=== PATIENT | female | born 1955 | race Caucasian/White ===

== ENCOUNTER 2017-06-21 17:00 | Emergency (ER) | payer OTHER ==
[~2017-06-21] VITALS: Ht 157.5 cm; Wt 61.2 kg
[~2017-06-21 17:00] MED LIST: BIOTIN2500 MCG PO; CEPACOL SORE T1 EAC1; CIPRO250 M1 PO; CLEOCIN HCL150 MG PO; COLACE 100 MG100 MG; COLACE100 MG PO; DOXYCYCLINE 10100 MG PO; DULCOLAX5 MG PO; ERYTHROMYCIN500 MG PO; ESTRADIOL 1 MG T1 M1 PO; FISHOIL; FLAGYL500 MG PO; FLEET ENEMA118 ML RC; GARLIC OIL1 EACH; HYDROCHLOROTH12.5 M1 PO; HYDROCHLOROTH12.5 MG; HYDROCODON-ACE1 EAC7 PO; LINZESS290 MCG PO; MACROBID 100 M100 M1 PO; MEDROLDOSEPACK PO; MIRALAX17 GM PO; MUCINEX1200 MG PO; NAPROSYN500 MG PO; NORCO 5-325 TA1 EACH PO; PREMARIN0.9 M1; PRINIVIL10 MG PO; PROBIOTIC1 EAC1 PO; PROBIOTIC1 EACH; PROMETHAZINE D480 ML PO; PROMETHAZINE-C120 ML PO; TYLENOL325 MG PO; ULTRAM 50MG TAB50 MG PO; VICODIN ES TAB1 EACH; VITAMIN E400 UNI2 PO; VITAMIN E400 UNIT; ZOCOR 20 MG TAB20 M1 PO; ZOFRAN 4 MG ORAL4 M1 DIS; ZOFRAN ODT4 MG PO; ZOFRAN4 MG PO
[2017-06-21 19:00] VITALS: BP 111/79
[2017-06-21] MEDS ORDERED: PREDNISONE 20 M20 M1 PO (19:00)
[2017-06-21] MEDS ORDERED: PEPCID20 MG PO (19:01)
[2017-10-04] MEDS ORDERED: ULTRAM 50MG TAB50 MG PO (10:47)
[2017-10-04] MEDS ORDERED: HYDROCODONE-AP1 EAC6 PO (10:47)
[2017-10-04] MEDS ORDERED: ASPIRIN325 PO (11:15)
== END 2017-06-21 19:22 | disposition home or self-care (01) ==
LOC: M.ERS 17:00
DX: T78.40XA Allergy, unspecified, initial encounter (principal); I10 Essential (primary) hypertension; E78.00 Pure hypercholesterolemia, unspecified; Z90.710 Acquired absence of both cervix and uterus; Z98.890 Other specified postprocedural states; Z87.19 Personal history of other diseases of the digestive system; Z91.048 Other nonmedicinal substance allergy status; Z88.1 Allergy status to other antibiotic agents; Z88.5 Allergy status to narcotic agent; Z91.040 Latex allergy status; Z88.0 Allergy status to penicillin; Z88.8 Allergy status to other drugs, medicaments and biological substances; X58.XXXA Exposure to other specified factors, initial encounter; Y92.89 Other specified places as the place of occurrence of the external cause

== ENCOUNTER 2017-08-08 15:41 | Inpatient (IN) | payer OTHER ==
[~2017-08-08] VITALS: Ht 157.5 cm; Wt 66.2 kg
[~2017-08-08 15:41] MED LIST changes: +PEPCID20 MG PO; +PREDNISONE 20 M20 M1 PO
[2017-08-08 15:57] VITALS: BP 139/86
[2017-08-08] MEDS ORDERED: PROBIOTIC1 EAC1 PO (16:06)
[2017-08-08] MEDS ORDERED: LISINOPRIL-HCT1 EACH PO (16:06)
[2017-08-08] MEDS ORDERED: VITAMIN E400 UNIT PO (16:07)
[2017-08-08] MEDS ORDERED: COLACE100 MG PO (16:07)
[2017-08-08] MEDS ORDERED: GARLIC1 EACH PO (16:07)
[2017-08-08] MEDS ORDERED: HAIR, SKIN & N1 EAC1 PO (16:08)
[2017-08-08] MEDS ORDERED: BIOTIN5 MG PO (16:08)
[2017-08-08 16:16] LABS: URINE BILIRUBIN NEGATIVE (Negative); URINE BLOOD NEGATIVE (Negative); URINE CLARITY CLEAR; URINE COLOR YELLOW; URINE GLUCOSE-RANDOM NEGATIVE (Negative); URINE KETONES NEGATIVE (Negative); URINE LEUKOCYTES-REFLEX NEGATIVE (Negative); URINE NITRITE-REFLEX NEGATIVE (Negative); URINE PROTEIN NEGATIVE (Negative); URINE SPECIFIC GRAVITY 1.025 (1.005-1.030); URINE UROBILINOGEN 0.2 E.U./dl (0.2-1.0)
[2017-08-08 16:25] LABS: ABSOLUTE BASOPHILS 0.1 thou/uL (0.0-0.2); ABSOLUTE EOSINOPHILS 0.1 thou/uL (0.0-0.7); ABSOLUTE LYMPHOCYTES 2.1 thou/uL (0.8-5.3); ABSOLUTE MONOCYTES 0.6 thou/uL (0.0-1.2); ABSOLUTE NEUTROPHILS 5.1 thou/uL (1.6-8.1); BASOPHILS 0.8 %; EOSINOPHILS 1.7 %; HEMATOCRIT 38.6 % (37.0-47.0); HEMOGLOBIN 12.8 gm/dL (12.0-15.0); LYMPHOCYTES 25.7 %; MCH 31.2 pg (26.0-34.0); MCHC 33.2 g/dL (28.0-37.0); MCV 93.9 fL (80.0-100.0); MPV 9.1 fl. (7.2-11.1); NUCLEATED RBCS 0 /100WBC; PLATELET COUNT* 271 thou/uL (150-400); POLYS 63.8 %; RBC 4.11 mil/uL (4.20-5.00); RDW-CV 13.3 % (10.5-14.5)
[2017-08-08 16:44] LABS: CREATININE 0.8 mg/dL (0.6-1.3); POTASSIUM 3.5 mmol/L (3.5-5.1)
[2017-08-08 16:48] LABS: ALBUMIN 4.1 g/dL (3.4-5.0); TOTAL BILIRUBIN 0.4 mg/dL (<0.1-1.0); TOTAL PROTEIN 7.4 g/dL (6.4-8.2)
[2017-08-08 20:44] VITALS: BP 116/70
[2017-08-08 20:45] VITALS: BP 106/73
--- NOTE | 2017-08-08 20:45 | NUR ---
PT ADMITTED TO FLOOR PER CART ACCOMPANIED BY ER STAFF AND WITH BELONGINGS. ORIENTED TO ROOM AND CALL LITE. HISTORY OBTAINED AND ASSESSMENT PERFORMED, SEE ADMIT NOTES. PT DENIES NEED FOR PAIN AND NAUSEA AT THIS TIME. LAC IVF PLACED ON PUMP FOR INFUSION. REFUSING SCDS, EDUCATION GIVEN. PT WITH MANY ALLERGIES. ABLE TO USE CALL LITE AND MAKE NEEDS KNOWN. WILL CONTINUE TO MONITOR AND PROVIDE CARES NEEDED.
[2017-08-09 04:32] LABS: ABSOLUTE EOSINOPHILS 0.1 thou/uL (0.0-0.7); ABSOLUTE LYMPHOCYTES 1.7 thou/uL (0.8-5.3); ABSOLUTE MONOCYTES 0.6 thou/uL (0.0-1.2); ABSOLUTE NEUTROPHILS 3.7 thou/uL (1.6-8.1); BASOPHILS 0.4 %; HEMATOCRIT 35.5 % (37.0-47.0); HEMOGLOBIN 12.3 gm/dL (12.0-15.0); LYMPHOCYTES 27.2 %; MCH 32.1 pg (26.0-34.0); MCHC 34.6 g/dL (28.0-37.0); MCV 92.9 fL (80.0-100.0); MONOCYTES 9.6 %; MPV 9.5 fl. (7.2-11.1); NUCLEATED RBCS 0 /100WBC; PLATELET COUNT* 242 thou/uL (150-400); POLYS 60.8 %; RBC 3.82 mil/uL (4.20-5.00); RDW-CV 13.4 % (10.5-14.5); WBC 6.1 thou/uL (4.0-11.0)
[2017-08-09 04:36] LABS: CALCIUM 8.4 mg/dL (8.5-10.1); CREATININE 0.6 mg/dL (0.6-1.3); POTASSIUM 4.3 mmol/L (3.5-5.1)
--- NOTE | 2017-08-09 05:24 | NUR ---
NEW ADMIT THIS SHIFT. AOX4, ABLE TO USE CALL LITE AND MAKE NEEDS KNOWN. RECEIVING IV PAIN MED X1 AND ZOFRAN X2 WITH GOOD RELIEF. LAC IVF INFUSING PER PUMP, ABX GIVEN ORDERED. PT HAD MAG CITRATE AT HS AND REPORTS 4-5 STOOLS OVERNIGHT-INSTRUCTED TO SAVE NEXT STOOL FOR STAFF TO EVALUATE. AM LABS DRAWN. TOLERATING LIQUIDS WITHOUT EMESIS. GI TO SEE PT TODAY. LATEX ALLERGY, SIGNAGE AND STICKERS POSTED.
[2017-08-09 08:08] VITALS: BP 108/67
--- NOTE | 2017-08-09 14:19 | NUR ---
CM SPOKE TO THE PATIENT TO DISCUSS HOME SITUATION, DISCHARGE PLANNING, AND TO INFORM OF THE ROLE OF CM. PATIENT ALERT, ORIENTED, AND INDEPENDENT WITH ADL'S. PATIENT WORKS AND DRIVES. PATIENT RESIDES AT HOME WITH . PATIENT OWNS 0 DME. PATIENT HAS NO HX OF HH OR SNF. CM WILL REMAIN AVAILABLE TO ASSIST AND FOLLOW NEEDED.
[2017-08-09 16:30] VITALS: BP 125/78
--- NOTE | 2017-08-09 17:44 | NUR ---
ASSUMED CARE OF PATIENT AFTER REPORT THIS MORNING. PATIENT AWAKE, ALERT, AND ORIENTED APPROPRIATELY. PHYSICAL ASSESSMENT COMPLETED AND CHARTED. NO COMPLAINTS OF PAIN THIS SHIFT. GIVEN SCHEDULED MEDICATIONS, SEE EMAR FOR DOCUMENTATION. VITAL SIGNS STABLE. OXYEN SATURATION WITHIN NORMAL LIMITS ON ROOM AIR. PATIENT IS UP AD MIGUEL. DENIES NEEDS AT THIS TIME. CALL LIGHT WITHIN REACH. NURSING WILL CONTINUE TO MONITOR.
[2017-08-09 20:00] VITALS: BP 97/57
[2017-08-09 23:21] VITALS: BP 95/61
[2017-08-10 04:17] LABS: ABSOLUTE EOSINOPHILS 0.1 thou/uL (0.0-0.7); ABSOLUTE MONOCYTES 0.5 thou/uL (0.0-1.2); ABSOLUTE NEUTROPHILS 2.8 thou/uL (1.6-8.1); BASOPHILS 0.5 %; EOSINOPHILS 2.4 %; HEMATOCRIT 32.7 % (37.0-47.0); HEMOGLOBIN 11.1 gm/dL (12.0-15.0); LYMPHOCYTES 36.8 %; MCH 31.8 pg (26.0-34.0); MCHC 33.8 g/dL (28.0-37.0); MCV 94.1 fL (80.0-100.0); MONOCYTES 8.9 %; MPV 9.5 fl. (7.2-11.1); NUCLEATED RBCS 0 /100WBC; PLATELET COUNT* 206 thou/uL (150-400); POLYS 51.4 %; RBC 3.47 mil/uL (4.20-5.00); RDW-CV 13.4 % (10.5-14.5); WBC 5.4 thou/uL (4.0-11.0)
[2017-08-10 04:37] LABS: ALBUMIN 3.1 g/dL (3.4-5.0); CALCIUM 8.2 mg/dL (8.5-10.1); CREATININE 0.7 mg/dL (0.6-1.3); POTASSIUM 4.4 mmol/L (3.5-5.1); TOTAL BILIRUBIN 0.3 mg/dL (<0.1-1.0); TOTAL PROTEIN 5.5 g/dL (6.4-8.2)
--- NOTE | 2017-08-10 07:39 | NUR ---
REPORT GIVEN TO CARA MOHR, PT RECEIVES SLEEP AID AND RESTS WELL DURING THE NIGHT, PT CONTINUES TO COMPLAIN OF ABDOMINAL TENDERNESS, DENIES N/V OR BLOOD IN STOOLS , CONTINUES ON IV ABX WITH NOT ADEVERSE EFFECTS NOTED
[2017-08-10 08:00] VITALS: BP 119/72
[2017-08-10 15:41] VITALS: BP 120/73
[2017-08-10 20:00] VITALS: BP 120/92
--- NOTE | 2017-08-11 06:52 | NUR ---
Alert and oriented x 4. Up in room with stand by assist. She denies nausea or vomiting. Bowel sounds x 4. She denies pain. Vitals are stable. She has slept well.
[2017-08-11 08:00] VITALS: BP 123/74
[2017-08-11] MEDS ORDERED: FLAGYL500 MG PO (13:31)
[2017-08-11 13:33] VITALS: BP 123/74
[2017-08-11] MEDS ORDERED: ZOFRAN ODT4 MG PO (13:56)
--- NOTE | 2017-08-15 14:51 | CON ---
[address] [address] CONSULTATION Name: EVELYN ORLANDO Room: [address] IN M.R.#: [id number] Admission: 08/08/17 Attend Phys: Ovi Tong MD Discharge: 08/11/17 Date of : 59 Report #: [id number] THIS REPORT FOR: //name// CC: Ovi Olivier DICTATED BY: Norah Sams [facility] DATE OF SERVICE: 08/09/2017 Please note at the time of this dictation, the patient was seen and physically examined by myself. REASON FOR CONSULTATION: Abdominal pain, diverticulitis. HISTORY OF PRESENT ILLNESS: This is a pleasant 62-year-old female who presented to the Emergency Room with worsening of her left lower abdominal pain and cramping. She states she notes this past week that her bowels were not moving regularly as they have in the past. She does take MiraLax once a day with 3 stool softeners that usually allows her to go daily; however, she has noticed that the amount and consistency that she has been going over the past week has diminished. She states she did not notice blood like she did the last time when she was admitted, but only at the very last bowel movement prior to coming in. Previous hospitalization, she was noted to have colonic ischemia at that time due to her chronic constipation. At this time, the pain and the blood were not as severe as back in 2016. The patient did have a colonoscopy back at that time that showed hyperplastic polyps with repeat in 5 years, otherwise essentially negative. ALLERGIES: Include ADHESIVE TAPE, , , ALL CEPHALOSPORINS, CIPROFLOXACIN, DOXYCYCLINE, HYDROMORPHONE, LATEX, MORPHINE, AVELOX, PENICILLIN, SULFA, TRIMETHOPRIM and ACHROMYCIN. MEDICATIONS: From home include simvastatin, Estrace, lisinopril/hydrochlorothiazide, probiotic, Colace, vitamin E, garlic, Biotene and multivitamin with minerals. PAST MEDICAL HISTORY: History of colonic ischemia with chronic constipation, hypertension, elevated cholesterol. PAST SURGICAL HISTORY: Abdominal surgeries, hysterectomy, twisted bowel, sinus reconstruction, fistula repair, tonsil and adenoidectomy. FAMILY HISTORY: [place] [address] CONSULTATION Name: EVELYN ORLANDO Room: [address]#: [id number] Admission: 08/08/17 Attend Phys: Ovi Tong MD Discharge: 08/11/17 Date of : 59 Report #: [id number] SOCIAL HISTORY: Denies any tobacco, alcohol or illegal drug use. REVIEW OF SYSTEMS: Twelve-point review of systems is essentially negative except what is mentioned in the HPI. PHYSICAL EXAMINATION: VITAL SIGNS: Temperature 36.7, pulse 61, respirations 18, blood pressure 108/67. HEART: Regular rate and rhythm. LUNGS: Clear. ABDOMEN: Soft, positive bowel sounds in all 4 quadrants with some slight tenderness noted in the left lower quadrant area. LABORATORY DATA: Hemoglobin 12.3, hematocrit 35.5, white count is 6.1, platelets 242. Sodium 143, potassium 4.3, chloride 107, CO2 29, BUN is 19, creatinine is 0.6 and glucose is 96 with a GFR of 102. LFTs are completely normal and lipase is 200. CT of the abdomen and pelvis showed mural thickening of the pericolonic and mesenteric fat stranding around the sigmoid area suggesting of diverticulitis with large amount of stool throughout the entire colon. IMPRESSION: 1. Abdominal pain. 2. Diverticulitis. 3. Chronic constipation. PLAN: 1. Continue her Flagyl IV for another 24 hours and will need to go home on 10 days' worth of p.o. Flagyl. 2. Increase her MiraLax to b.i.d. at home. 3. Regular diet, low residue. 4. If she does well with the above changes and has no further discomfort, okay from GI standpoint for dismissal tomorrow. Thank you for allowing us to participate in this patient's care. Please do not hesitate to call with any questions in regard to this consult. ADDENDUM TO CONSULT #[id number] The patient with history of diverticulitis whose last episode was in late 2014. She presents with a couple days of abdominal pain which was mainly in the lower part of her belly. Since admission, she had labs and imaging suggestive of diverticulitis. She has been given magnesium citrate and has had couple of bowel movements, which improved her pain. At the same time, she has been started on antibiotics, which has helped her pain as well. She is currently tolerating her diet and her abdomen is soft. She has mild tenderness in the [address] [place] [address] CONSULTATION Name: EVELYN ORLANDO Room: [address] M.R.#: [id number] Admission: 08/08/17 Attend Phys: Ovi Tong MD Discharge: 08/11/17 Date of : 59 Report #: [id number] lower part of the abdomen to deep palpation. We will go ahead and keep her in the hospital for another day and give her IV antibiotics. She will go home with 10 days of p.o. antibiotics and we will perform a flex sig in 6-8 weeks. The patient is agreeable with plan. <ELECTRONICALLY SIGNED> By: Merlin Geronimo MD 08/15/17 1451 1049 [id number] Geronimo MD /nt
--- NOTE | 2017-08-15 14:51 | CON ---
[address] [address] CONSULTATION Name: EVELYN ORLANDO Room: [address] IN M.R.#: [id number] Admission: 08/08/17 Attend Phys: Ovi Tong MD Discharge: 08/11/17 Date of : 59 Report #: [id number] THIS REPORT FOR: //name// CC: Ovi García [facility] DATE OF SERVICE: 08/09/2017 ADDENDUM TO CONSULT #[id number] The patient with history of diverticulitis whose last episode was in late 2014. She presents with a couple days of abdominal pain which was mainly in the lower part of her belly. Since admission, she had labs and imaging suggestive of diverticulitis. She has been given magnesium citrate and has had couple of bowel movements, which improved her pain. At the same time, she has been started on antibiotics, which has helped her pain as well. She is currently tolerating her diet and her abdomen is soft. She has mild tenderness in the lower part of the abdomen to deep palpation. We will go ahead and keep her in the hospital for another day and give her IV antibiotics. She will go home with 10 days of p.o. antibiotics and we will perform a flex sig in 6-8 weeks. The patient is agreeable with plan. <ELECTRONICALLY SIGNED> By: Merlin Geronimo MD 08/15/17 1451 1606 1933Merlin Geronimo MD /jaime
[2017-10-04] MEDS ORDERED: ULTRAM 50MG TAB50 MG PO (10:47)
[2017-10-04] MEDS ORDERED: HYDROCODONE-AP1 EAC6 PO (10:47)
[2017-10-04] MEDS ORDERED: ASPIRIN325 PO (11:15)
== END 2017-08-11 15:35 | disposition home or self-care (01) | DRG 371 ==
LOC: M.ERS 15:41 → M.TBA-ER 18:32 → M.ORTHSURG 18:32
PROVIDERS: Physician Assistant; ADMIT Internal Medicine
DX: A04.9 Bacterial intestinal infection, unspecified (principal); K55.039 Acute (reversible) ischemia of large intestine, extent unspecified; K57.32 Diverticulitis of large intestine without perforation or abscess without bleeding; I10 Essential (primary) hypertension; K59.09 Other constipation; Z90.710 Acquired absence of both cervix and uterus; E86.0 Dehydration; E78.00 Pure hypercholesterolemia, unspecified; Z90.89 Acquired absence of other organs; Z79.899 Other long term (current) drug therapy; Z88.8 Allergy status to other drugs, medicaments and biological substances; Z88.2 Allergy status to sulfonamides

== ENCOUNTER → 2017-10-04 | Day surgery (SDC) | payer OTHER ==
[~2017-10-04] MED LIST changes: +ASPIRIN325 PO; +ATIVAN0.5 MG PO; +BIOTIN5 MG PO; +GARLIC1 EACH PO; +HAIR, SKIN & N1 EAC1 PO; +HYDROCODONE-AP1 EAC6 PO; +LISINOPRIL-HCT1 EACH PO; +VITAMIN E400 UNIT PO
[2017-10-04 06:52] LABS: HEMATOCRIT 38.7 % (37.0-47.0); HEMOGLOBIN 12.9 gm/dL (12.0-15.0); MCH 31.7 pg (26.0-34.0); MCHC 33.5 g/dL (28.0-37.0); MCV 94.8 fL (80.0-100.0); MPV 9.9 fl. (7.2-11.1); RBC 4.08 mil/uL (4.20-5.00); RDW-CV 12.6 % (10.5-14.5); WBC 4.6 thou/uL (4.0-11.0)
[2017-10-04 07:04] LABS: CALCIUM 9.1 mg/dL (8.5-10.1); CREATININE 0.7 mg/dL (0.6-1.3); POTASSIUM 4.2 mmol/L (3.5-5.1)
[2017-10-04 07:08] LABS: ALBUMIN 4.1 g/dL (3.4-5.0); TOTAL BILIRUBIN 0.3 mg/dL (<0.1-1.0); TOTAL PROTEIN 7.4 g/dL (6.4-8.2)
--- NOTE | 2017-10-04 11:33 | EKG ---
[place] [address] ELECTROCARDIOGRAM REPORT Name: EVELYN ORLANDO Room: [facility].#: [id number] Admission: 10/04/17 Attend Phys: Roney Penaloza DO Discharge: Date of : 59 Report #: [id number] THIS REPORT FOR: //name// [facility] Test Date: 2017-10-04 Test Time: 07:31:17 Pat Name: EVELYN WATERMANMILANA Department: Room: Gender: F Immigration Law Specialist: : 1955 Requested By: Roney Penaloza Order Number: [id number] Reading MD: Blake Abad Measurements Intervals [place] Rate: 63 P: 32 SD: 169 QRS: 25 QRSD: 100 T: 13 QT: 437 QTc: 448 Interpretive Statements Sinus rhythm Low voltage, precordial leads Compared to ECG 02/22/2016 17:50:00 Possible ischemia no longer present Electronically Signed On 10-04-2017 11:33:22 CDT by Blake Abad [email or web address] <ELECTRONICALLY SIGNED> By: Blake Abad MD, [facility] 10/04/17 1133 0731 0 Blake Abad MD, [facility]ACC /EPI
--- NOTE | 2017-10-15 11:12 | OP ---
[facility] [address] [place] [address] OPERATIVE REPORT Name: EVELYN ORLANDO Room: [facility].#: [id number] Admission: 10/04/17 Attend Phys: Roney Penaloza DO Discharge: Date of : 59 Report #: [id number] THIS REPORT FOR: //name// CC: Ricky Penaloza DICTATED BY: Gildardo Pacheco DATE OF SERVICE: 10/04/2017 PREOPERATIVE DIAGNOSIS: Right shoulder recurrent rotator cuff tear. POSTOPERATIVE DIAGNOSES: 1. Right shoulder recurrent rotator cuff tear. 2. Biceps fraying. PROCEDURE: Right shoulder arthroscopic surgery with revision rotator cuff repair and biceps tenotomy. SURGEON: Roney Penaloza DO RENTAL COORDINATOR: Gildardo Pacheco DO. ANESTHESIA: General and interscalene nerve block. ESTIMATED BLOOD LOSS: 5 mL. ANTIBIOTICS: One gram vancomycin. SPECIMENS: None. DRAINS: None. COMPLICATIONS: None apparent. CONDITION: Stable, transferred to PACU. DISPOSITION: PACU to home. PERTINENT HISTORY AND PHYSICAL: A 62-year-old female who has a history of a right shoulder rotator cuff repair greater than 10 years ago. She suffered recurrent tear that is evident on MRI scan. She has elected for a revision right rotator cuff repair and all indicated procedures. We discussed the procedure to be performed in great detail including but not limited to the risks, benefits, potential complications, and alternatives including but not limited to infection, blood loss, damage to surrounding tissue, damage to blood [place] [address] OPERATIVE REPORT Name: EVELYN ORLANDO Room: [facility] M..#: [id number] Admission: 10/04/17 Attend Phys: Roney Penaloza DO Discharge: Date of : 59 Report #: [id number] vessels and nerves, continued pain, worsening pain, numbness, tingling, weakness, paralysis, loss of function, hardware loosening, hardware failure, intraoperative fracture, postoperative fracture, damage to cartilage, damage to bone, failure of repair, retear, paralysis, inability to use the arm, no relief of pain, worsening of function, stiffness of shoulder, stiffness of other joints, need for further surgery, complications with anesthesia, thrombus, as well as other imponderables and she wishes to proceed. DESCRIPTION OF PROCEDURE: After written consent was obtained, the patient was transferred to the operative suite and placed in a supine position on the operative table. Anesthesia was induced via the anesthesia team. The patient was then placed in the beach-chair position. The right upper extremity was sterilely prepped and draped with ChloraPrep x 2. Timeout was performed. The correct patient, surgical site, procedure to be performed, antibiotics and surgeon were confirmed. Marking pen used to nikky our correct location of shoulder anatomy. Posterolateral portal incision made with a 15-blade knife, followed by insertion of arthroscopic trocar. Anterior portal was established with a spinal needle and a 15-blade knife, followed by insertion of blunt trocar. The diagnostic arthroscopy was performed and the biceps tenotomy was performed with arthroscopic scissors due to biceps fraying. Debridement of the labrum was performed also, debridement of undersurface rotator cuff repair was performed. Final images were taken and the scope was redirected in the subacromial space. Lateral portal incision established with a #15 blade knife, followed by insertion of blunt trocar. Debridement of the subacromial tissues was performed in the usual fashion with arthroscopic shaver and radiofrequency ablator. A large rotator cuff tear was identified. She did appear to have good tissue that would be amenable to revision rotator cuff repair. We debrided the edges of the cuff tear in addition to the footprint. We then used an Arthrex SpeedBridge to perform double row rotator cuff repair. Two medial row anchors were placed at the articular margin, followed by good bites to the rotator cuff and crossing of the sutures into lateral row anchors. An excellent suture bridge technique double row rotator cuff repair was performed and final images were taken. This was performed via shuttling sutures through multiple portals. After final images were taken, the shoulder was diffused with the sterile arthroscopy water. The portal sites were closed with a 3-0 nylon suture in simple interrupted fashion. Xeroform, 4 x 4s, ABD pad, and Medipore tape were used as sterile dressing. The shoulder was placed in a slingshot immobilizer. Anesthesia was reversed by the anesthesia team. The patient was transferred back to the transfer cart and transferred to the postanesthesia care unit in stable condition. The patient appeared to tolerate this procedure well. There were no obvious complications apparent. Needle and sponge counts correct per [place] [address] OPERATIVE REPORT Name: EVELYN ORLANDO [id number] Admission: 10/04/17 Attend Phys: Roney Penaloza DO Discharge: Date of : 59 Report #: [id number] DISPOSITION: Nonweightbearing right upper extremity, discharge home once stable per Anesthesia. Follow up in 2 weeks. <ELECTRONICALLY SIGNED> By: Roney Penaloza DO 10/15/17 1112 1028 1145Crama Penaloza DO /jaime
== END | disposition home or self-care (01) ==
LOC: M.SUR 06:14
PROVIDERS: Orthopaedic Surgery
DX: M75.101 Unspecified rotator cuff tear or rupture of right shoulder, not specified as traumatic (principal); M75.21 Bicipital tendinitis, right shoulder; Z88.0 Allergy status to penicillin; Z88.2 Allergy status to sulfonamides; Z88.8 Allergy status to other drugs, medicaments and biological substances; Z98.890 Other specified postprocedural states; Z79.82 Long term (current) use of aspirin; Z79.891 Long term (current) use of opiate analgesic; Z79.899 Other long term (current) drug therapy

== ENCOUNTER 2017-11-08 11:37 | Emergency (ER) | payer OTHER ==
[~2017-11-08] VITALS: Ht 157.5 cm; Wt 61.2 kg
[~2017-11-08 11:37] MED LIST changes: -ATIVAN0.5 MG PO
[2017-11-08 12:13] LABS: ABSOLUTE LYMPHOCYTES 1.2 thou/uL (0.8-5.3); ABSOLUTE MONOCYTES 0.3 thou/uL (0.0-1.2); ABSOLUTE NEUTROPHILS 4.3 thou/uL (1.6-8.1); BASOPHILS 0.5 %; EOSINOPHILS 0.1 %; HEMATOCRIT 39.1 % (37.0-47.0); HEMOGLOBIN 13.1 gm/dL (12.0-15.0); LYMPHOCYTES 20.3 %; MCH 31.3 pg (26.0-34.0); MCHC 33.6 g/dL (28.0-37.0); MCV 93.3 fL (80.0-100.0); MPV 9.9 fl. (7.2-11.1); NUCLEATED RBCS 0 /100WBC; PLATELET COUNT* 251 thou/uL (150-400); POLYS 73.1 %; RBC 4.19 mil/uL (4.20-5.00); RDW-CV 12.7 % (10.5-14.5); WBC 5.8 thou/uL (4.0-11.0)
[2017-11-08 12:23] LABS: URINE BILIRUBIN NEGATIVE (Negative); URINE BLOOD 1+ (Negative); URINE CLARITY CLEAR; URINE COLOR YELLOW; URINE GLUCOSE-RANDOM NEGATIVE (Negative); URINE KETONES NEGATIVE (Negative); URINE LEUKOCYTES NEGATIVE (Negative); URINE NITRITE NEGATIVE (Negative); URINE PROTEIN NEGATIVE (Negative); URINE SPECIFIC GRAVITY <= 1.005 (1.005-1.030); URINE UROBILINOGEN 0.2 E.U./dl (0.2-1.0)
[2017-11-08 12:26] LABS: ANION GAP 9 mmol/L (7-16); BUN 18 mg/dL (7-18); CALCIUM 9.4 mg/dL (8.5-10.1); CHLORIDE 100 mmol/L (98-107); CO2 29 mmol/L (21-32); CREATININE 0.6 mg/dL (0.6-1.3); GLUCOSE 122 mg/dL (70-99); SODIUM 138 mmol/L (136-145)
[2017-11-08 12:31] LABS: ALBUMIN 4.3 g/dL (3.4-5.0); ALKALINE PHOSPHATASE 44 U/L (46-116); LIPASE 172 U/L (73-393); SGOT 17 U/L (15-37); SGPT 21 U/L (30-65); TOTAL BILIRUBIN 0.3 mg/dL (<0.1-1.0); TOTAL PROTEIN 7.9 g/dL (6.4-8.2)
[2017-11-08 12:37] LABS: BACTERIA None Seen /HPF (None Seen); CASTS None Seen /LPF (None Seen); CRYSTALS None Seen /LPF (None Seen); SQUAMOUS 0-3 Few /LPF (0-3); URINE RBC 0-2 Rare /HPF (0-2); URINE WBC None Seen /HPF (0-5)
[2017-11-08 12:45] LABS: TROPONIN-I LEVEL <0.06 ng/mL (<0.06)
[2017-11-08] MEDS ORDERED: ATIVAN0.5 MG PO (13:33)
[2017-11-08 13:50] VITALS: BP 124/85
--- NOTE | 2017-11-08 15:57 | EKG ---
[place] [address] ELECTROCARDIOGRAM REPORT Name: EVELYN ORLANDO Room: [facility]#: [id number] Admission: 11/08/17 Attend Phys: Discharge: 11/08/17 Date of : 59 Report #: [id number] THIS REPORT FOR: //name// [facility] ED Test Date: 2017-11-08 Test Time: 11:45:36 Pat Name: EVELYN WATERMANMILANA Department: Room: Gender: F Rotary Kiln Operator: Lebron MCCRAY : 1955 Requested By: Eden Ash Order Number: [id number] MD: Jeremias Smith Measurements Intervals [place] Rate: 82 P: 54 MD: 179 QRS: 16 QRSD: 96 T: 9 QT: 387 QTc: 452 Interpretive Statements Sinus rhythm Low voltage, precordial leads Borderline T abnormalities, anterior leads Compared to ECG 10/04/2017 07:31:17 no change Electronically Signed On 11-08-2017 15:57:28 CDT by Jeremias Smith [email or web address] <ELECTRONICALLY SIGNED> By: Jeremias Smith MD, [facility] 11/08/17 1557 1145 1145 Jeremias Smith MD, [facility] /EPI
== END 2017-11-08 13:50 | disposition home or self-care (01) ==
LOC: M.ERS 11:37
PROVIDERS: Nurse Practitioner Family
DX: F41.9 Anxiety disorder, unspecified (principal); I10 Essential (primary) hypertension; E78.00 Pure hypercholesterolemia, unspecified; Z88.0 Allergy status to penicillin; Z88.1 Allergy status to other antibiotic agents; Z91.041 Radiographic dye allergy status; Z88.6 Allergy status to analgesic agent; Z88.8 Allergy status to other drugs, medicaments and biological substances; Z90.49 Acquired absence of other specified parts of digestive tract; Z90.710 Acquired absence of both cervix and uterus

== ENCOUNTER 2018-01-27 15:25 | Emergency (ER) | payer OTHER ==
[~2018-01-27] VITALS: Ht 157.5 cm; Wt 61.2 kg
[~2018-01-27 15:25] MED LIST changes: +ATIVAN0.5 MG PO
[2018-01-27 16:03] LABS: URINE BILIRUBIN NEGATIVE (Negative); URINE BLOOD 2+ (Negative); URINE CLARITY CLEAR; URINE COLOR YELLOW; URINE GLUCOSE-RANDOM NEGATIVE (Negative); URINE KETONES NEGATIVE (Negative); URINE LEUKOCYTES TRACE (Negative); URINE NITRITE NEGATIVE (Negative); URINE PROTEIN NEGATIVE (Negative); URINE SPECIFIC GRAVITY >= 1.030 (1.005-1.030); URINE UROBILINOGEN 0.2 E.U./dl (0.2-1.0)
[2018-01-27 16:14] LABS: MUCUS 0-3 Light strn/LPF (None Seen); SQUAMOUS >10 Many /LPF (0-3)
[2018-01-27 16:15] LABS: BACTERIA 1-9 Few /HPF (None Seen); URINE WBC 0-5 Rare /HPF (0-5)
[2018-01-27 16:16] LABS: CASTS None Seen /LPF (None Seen); CRYSTALS None Seen /LPF (None Seen); URINE RBC 3-10 Few /HPF (0-2)
[2018-01-27 16:17] LABS: ABSOLUTE EOSINOPHILS 0.1 thou/uL (0.0-0.7); ABSOLUTE MONOCYTES 0.5 thou/uL (0.0-1.2); ABSOLUTE NEUTROPHILS 3.1 thou/uL (1.6-8.1); BASOPHILS 0.8 %; HEMATOCRIT 36.5 % (37.0-47.0); HEMOGLOBIN 12.2 gm/dL (12.0-15.0); LYMPHOCYTES 34.1 %; MCH 31.3 pg (26.0-34.0); MCHC 33.5 g/dL (28.0-37.0); MCV 93.4 fL (80.0-100.0); MONOCYTES 9.4 %; NUCLEATED RBCS 0 /100WBC; PLATELET COUNT* 254 thou/uL (150-400); POLYS 53.7 %; RBC 3.91 mil/uL (4.20-5.00); RDW-CV 13.4 % (10.5-14.5); WBC 5.7 thou/uL (4.0-11.0)
[2018-01-27 16:24] LABS: CALCIUM 8.5 mg/dL (8.5-10.1); CREATININE 0.6 mg/dL (0.6-1.3); POTASSIUM 3.7 mmol/L (3.5-5.1)
[2018-01-27 16:38] LABS: TOTAL BILIRUBIN 0.2 mg/dL (<0.1-1.0); TOTAL PROTEIN 7.4 g/dL (6.4-8.2)
[2018-01-27] MEDS ORDERED: MACROBID 100 M100 M1 PO (17:16)
[2018-01-27 17:35] VITALS: BP 118/78
== END 2018-01-27 17:35 | disposition home or self-care (01) ==
LOC: M.ERS 15:25
DX: N39.0 Urinary tract infection, site not specified (principal); I10 Essential (primary) hypertension; E78.00 Pure hypercholesterolemia, unspecified; Z90.710 Acquired absence of both cervix and uterus; Z90.721 Acquired absence of ovaries, unilateral; Z88.0 Allergy status to penicillin; Z88.2 Allergy status to sulfonamides; Z88.1 Allergy status to other antibiotic agents; Z88.5 Allergy status to narcotic agent; Z88.8 Allergy status to other drugs, medicaments and biological substances; Z91.040 Latex allergy status

== ENCOUNTER 2019-05-20 14:33 | Emergency (ER) | payer OTHER ==
[~2019-05-20] VITALS: Ht 157.5 cm; Wt 64.9 kg
[2019-05-20] MEDS ORDERED: LEXAPRO20 MG PO (14:45)
[2019-05-20] MEDS ORDERED: VITAMIN D400 UNIT PO (14:45)
[2019-05-20] MEDS ORDERED: OMEPRAZOLE 20 M20 M1 PO (14:46)
[2019-05-20 15:06] LABS: URINE BLOOD TRACE (Negative); URINE CLARITY CLEAR; URINE COLOR YELLOW; URINE GLUCOSE-RANDOM NEGATIVE (Negative); URINE KETONES NEGATIVE (Negative); URINE LEUKOCYTES-REFLEX TRACE (Negative); URINE NITRITE-REFLEX NEGATIVE (Negative); URINE PROTEIN NEGATIVE (Negative); URINE UROBILINOGEN 0.2 E.U./dl (0.2-1.0)
[2019-05-20 15:07] LABS: URINE BILIRUBIN 1+ (Negative)
[2019-05-20 15:13] LABS: ICTOTEST (BILI CONFIRMATORY) Negative (Negative); SQUAMOUS 0-3 Few /LPF (0-3)
[2019-05-20 15:14] LABS: BACTERIA-REFLEX 1-9 Few /HPF (None Seen); CASTS None Seen /LPF (None Seen); CRYSTALS None Seen /LPF (None Seen); MUCUS None Seen strn/LPF (None Seen); URINE RBC 0-2 Rare /HPF (0-2); URINE WBC-REFLEX 0-5 Rare /HPF (0-5)
[2019-05-20] MEDS ORDERED: NORCO 5-325 TA1 EAC1 PO (15:31)
[2019-05-20] MEDS ORDERED: FLEXERIL PO (15:31)
[2019-05-20] MEDS ORDERED: MACROBID 100 M100 MG PO (15:31)
[2019-05-20 15:40] VITALS: BP 136/66
== END 2019-05-20 15:42 | disposition home or self-care (01) ==
LOC: M.ERS 14:33
PROVIDERS: Emergency Medicine Emergency Medical Services
DX: N39.0 Urinary tract infection, site not specified (principal); M54.5 Low back pain; I10 Essential (primary) hypertension; E78.00 Pure hypercholesterolemia, unspecified; Z90.49 Acquired absence of other specified parts of digestive tract; Z90.89 Acquired absence of other organs; Z90.711 Acquired absence of uterus with remaining cervical stump; Z98.890 Other specified postprocedural states; Z91.048 Other nonmedicinal substance allergy status; Z88.6 Allergy status to analgesic agent; Z88.2 Allergy status to sulfonamides; Z88.1 Allergy status to other antibiotic agents; Z88.5 Allergy status to narcotic agent; Z88.0 Allergy status to penicillin; Z88.8 Allergy status to other drugs, medicaments and biological substances

== ENCOUNTER 2019-09-10 08:24 | Emergency (ER) | payer OTHER ==
[~2019-09-10] VITALS: Ht 157.5 cm; Wt 65.8 kg
[~2019-09-10 08:24] MED LIST changes: +FLEXERIL PO; +LEXAPRO20 MG PO; +MACROBID 100 M100 MG PO; +NORCO 5-325 TA1 EAC1 PO; +OMEPRAZOLE 20 M20 M1 PO; +VITAMIN D400 UNIT PO
[2019-09-10 08:58] LABS: ABSOLUTE BASOPHILS 0.1 thou/uL (0.0-0.2); ABSOLUTE EOSINOPHILS 0.1 thou/uL (0.0-0.7); ABSOLUTE LYMPHOCYTES 1.5 thou/uL (0.8-5.3); ABSOLUTE MONOCYTES 0.5 thou/uL (0.0-1.2); BASOPHILS 0.7 %; EOSINOPHILS 1.5 %; HEMATOCRIT 39.5 % (37.0-47.0); HEMOGLOBIN 13.6 gm/dL (12.0-15.0); LYMPHOCYTES 21.4 %; MCH 31.7 pg (26.0-34.0); MCHC 34.4 g/dL (28.0-37.0); MCV 92.1 fL (80.0-100.0); MONOCYTES 7.5 %; MPV 9.3 fl. (7.2-11.1); NUCLEATED RBCS 0 /100WBC; PLATELET COUNT* 255 thou/uL (150-400); POLYS 68.9 %; RBC 4.29 mil/uL (4.20-5.00); RDW-CV 13.2 % (10.5-14.5); WBC 7.2 thou/uL (4.0-11.0)
[2019-09-10 09:06] LABS: CALCIUM 8.7 mg/dL (8.5-10.1); CREATININE 0.8 mg/dL (0.6-1.3); POTASSIUM 3.3 mmol/L (3.5-5.1)
[2019-09-10 09:10] LABS: ALBUMIN 4.1 g/dL (3.4-5.0); TOTAL BILIRUBIN 0.5 mg/dL (<0.1-1.0); TOTAL PROTEIN 7.5 g/dL (6.4-8.2)
[2019-09-10] MEDS ORDERED: NORCO 5-325 TA1 EAC1 PO (10:38)
[2019-09-10] MEDS ORDERED: CLEOCIN HCL300 MG PO (10:38)
[2019-09-10] MEDS ORDERED: FLAGYL500 M1 PO (10:38)
[2019-09-10] MEDS ORDERED: ZOFRAN ODT4 MG DISSOLVE (10:41)
[2019-09-10 10:51] VITALS: BP 142/75
--- NOTE | 2019-09-10 16:13 | EKG ---
[place] [address] ELECTROCARDIOGRAM REPORT Name: EVELYN ORLANDO Room: [facility]#: [id number] Admission: 09/10/19 Attend Phys: Discharge: 09/10/19 Date of : 59 Date of Service: 09/10/19 0854 Report #: [id number] THIS REPORT FOR: //name// [facility] ED Test Date: 2019-09-10 Test Time: 08:54:30 Pat Name: EVELYN ORLANDO Department: Room: Gender: F Project Reservoir Engineer: CCD : 1955 Requested By: Jovi Eckert Order Number: [id number] MD: Peter Nagel Measurements Intervals [place] Rate: 69 P: 41 VA: 188 QRS: 6 QRSD: 105 T: -1 QT: 464 QTc: 497 Interpretive Statements Sinus rhythm Low voltage, precordial leads Borderline T abnormalities, diffuse leads Borderline prolonged QT interval Compared to ECG 11/08/2017 11:45:36 No significant changes Electronically Signed On 09-10-2019 16:12:03 CDT by Peter Nagel [email or web address] <ELECTRONICALLY SIGNED> By: Peter Nagel MD, [facility] 09/10/19 1612 0854 0854 Peter Nagel MD, [facility] /EPI
== END 2019-09-10 10:52 | disposition home or self-care (01) ==
LOC: M.ERS 08:24
PROVIDERS: Emergency Medicine Emergency Medical Services
DX: K52.9 Noninfective gastroenteritis and colitis, unspecified (principal); I10 Essential (primary) hypertension; E78.00 Pure hypercholesterolemia, unspecified; Z88.1 Allergy status to other antibiotic agents; Z88.0 Allergy status to penicillin; Z88.2 Allergy status to sulfonamides; Z88.5 Allergy status to narcotic agent; Z88.8 Allergy status to other drugs, medicaments and biological substances; Z90.710 Acquired absence of both cervix and uterus; Z90.49 Acquired absence of other specified parts of digestive tract; Z90.721 Acquired absence of ovaries, unilateral

== ENCOUNTER → 2019-12-15 | Outpatient (CLI) | payer OTHER ==
[~2019-12-15] MED LIST changes: +CLEOCIN HCL300 MG PO; +FLAGYL500 M1 PO; +ZOFRAN ODT4 MG DISSOLVE
== END ==
LOC: M.LAB 08:06
PROVIDERS: ATTEND Orthopaedic Surgery
DX: Z01.818 Encounter for other preprocedural examination (principal); M65.311 Trigger thumb, right thumb; Z11.59 Encounter for screening for other viral diseases

== ENCOUNTER → 2020-09-06 | Day surgery (SDC) | payer OTHER ==
[~2020-09-06] MED LIST changes: +APAP W/CODEINE1 TA2 PO; +LISINOPRIL20 MG PO; +TOPROL XL25 MG PO
[2020-09-06 08:48] LABS: ABSOLUTE BASOPHILS 0.1 thou/uL (0.0-0.2); ABSOLUTE EOSINOPHILS 0.1 thou/uL (0.0-0.7); ABSOLUTE LYMPHOCYTES 2.2 thou/uL (0.8-5.3); ABSOLUTE MONOCYTES 0.6 thou/uL (0.0-1.2); ABSOLUTE NEUTROPHILS 3.4 thou/uL (1.6-8.1); BASOPHILS 1.3 %; EOSINOPHILS 1.3 %; HEMATOCRIT 41.2 % (37.0-47.0); HEMOGLOBIN 13.5 gm/dL (12.0-15.0); LYMPHOCYTES 34.7 %; MCH 30.6 pg (26.0-34.0); MCHC 32.9 g/dL (28.0-37.0); MCV 93.3 fL (80.0-100.0); MONOCYTES 9.6 %; MPV 9.3 fl. (7.2-11.1); NUCLEATED RBCS 0 /100WBC; PLATELET COUNT* 292 thou/uL (150-400); POLYS 53.1 %; RBC 4.41 mil/uL (4.20-5.00); RDW-CV 13.3 % (10.5-14.5); WBC 6.3 thou/uL (4.0-11.0)
[2020-09-06 08:50] LABS: CALCIUM 9.1 mg/dL (8.5-10.1); CREATININE 0.6 mg/dL (0.6-1.3); POTASSIUM 4.3 mmol/L (3.5-5.1)
[2020-09-06 10:09] LABS: ESR (SEDRATE) 10 mm/hr (0-30)
--- NOTE | 2020-09-06 11:48 | EKG ---
[place] [address] ELECTROCARDIOGRAM REPORT Name: EVELYN ORLANDO Room: [facility]#: [id number] Admission: 09/06/20 Attend Phys: Roney Penaloza DO Discharge: Date of : 59 Date of Service: 09/06/20 0838 Report #: [id number] THIS REPORT FOR: //name// [facility] Test Date: 2020-09-06 Test Time: 08:38:46 Pat Name: EVELYN ORLANDO Department: Room: Gender: F Payroll Tax Specialist: : 1955 Requested By: Roney Penaloza Order Number: [id number] Reading MD: Blake Abad Measurements Intervals [place] Rate: 64 P: 37 NE: 165 QRS: 27 QRSD: 102 T: 29 QT: 437 QTc: 451 Interpretive Statements Sinus rhythm Low voltage, precordial leads Compared to ECG 09/10/2019 08:54:30 T-wave abnormality no longer present Electronically Signed On 09-06-2020 11:47:54 CDT by Blake Abad [email or web address] <ELECTRONICALLY SIGNED> By: Blake Abad MD, [facility] 09/06/20 1147 0838 0838 Blake Abad MD, [facility] /EPI
--- NOTE | 2020-09-08 13:58 | OP ---
[address] [address] OPERATIVE REPORT Name: EVELYN ORLANDO Room: [facility]#: [id number] Admission: 09/06/20 Attend Phys: Roney Penaloza DO Discharge: Date of : 59 Report #: [id number] THIS REPORT FOR: cc: Ricky Olivier MD, Bruce D. MD Orth, Charles DO ~ DICTATED BY: Nicola Sanchez DO DATE OF SERVICE: 09/06/2020 PREOPERATIVE DIAGNOSIS: Left shoulder recurrent rotator cuff tear. POSTOPERATIVE DIAGNOSIS: Left shoulder greater than 75% articular-sided recurrent rotator cuff tear. PROCEDURE PERFORMED: Left shoulder arthroscopy with revision rotator cuff repair and extensive debridement. SURGEON: Roney Penaloza DO [employer] ACC[employer]S SUPERVISOR: Nicola Sanchez DO. SECOND GREIGE MENDER: Tian Jeff DO ANESTHESIA: General with peripheral nerve block. ESTIMATED BLOOD LOSS: 10 mL. DRAINS: None. SPECIMENS: None. COMPLICATIONS: None. CONDITION: Stable to PACU. DISPOSITION: PACU to home. INDICATIONS FOR PROCEDURE: The patient is a pleasant 65-year-old female who has ongoing pain and weakness in the left upper extremity She has had a previous left shoulder arthroscopy with rotator cuff repair and open distal clavicle excision number of years ago. However, she has developed severe onset of pain, weakness, difficulty with overhead use of the left upper extremity over the past 6 months. She was evaluated and determined to have a possible recurrent rotator cuff tear of the supraspinatus tendon on physical exam as well as MRI and [address] [address] OPERATIVE REPORT Name: EVELYN ORLANDO Room: [facility].#: [id number] Admission: 09/06/20 Attend Phys: Roney Penaloza DO Discharge: Date of : 59 Report #: [id number] recommended to undergo left shoulder arthroscopy with a possible rotator cuff repair. Therefore, the risks, benefits, treatment options, alternatives, indications were discussed with the patient. Risks include but not limited to damage to surrounding neurovascular structures, continued pain, continued bleeding, need for repeat surgery, wound dehiscence, infection, DVT, PE, as well as inherent complications of anesthesia. The patient assumed the risks and wished to proceed with surgery. DESCRIPTION OF PROCEDURE: The patient was seen in the preoperative holding area where consent was obtained and signed. Left upper extremity was marked and initialed. She was then given the benefit of peripheral nerve blocs and transferred back to the operative suite and placed supine on the operating table. She was given the benefit of general anesthetic, then placed into the beach chair position. All bony prominences were well-padded. Legs were placed in an elevated ramp and head was secured in neutral position to the arthroscopic wet process assistant head miller. Left upper extremity was then sterilely prepped utilizing Hibiclens scrub, alcohol rinse then ChloraPrep x 2 and draped in normal sterile fashion. Timeout then had indicating appropriate patient, procedure and procedure to be performed, operative site, operating surgeon and preoperative antibiotics. All attendance were in agreeance. Next, we began with establishment of the posterior viewing portal with 11 blade scalpel through skin and subcutaneous tissues and then blunt trocar and cannula were then used in the glenohumeral joint. A diagnostic arthroscopy was performed demonstrating subscapularis tendon to be intact. No significant SLAP lesion with just a small amount of superior labral fraying. Biceps tendon and anchor were intact. No signs of longitudinal tearing. Anterior and posterior Bankart regions were intact with no signs of instability as well as axillary pouch was clear of any debris or loose bodies. However, there was noted to be significant large approximately 75% articular-sided rotator cuff tear at the anterior aspect of the supraspinatus tendon. Therefore an anterior portal was subsequently established. An 18-gauge spinal needle followed by 11 blade scalpel through skin and subcutaneous tissues and a blunt trocar and cannula were then used and the rotator interval. Arthroscopic shaver was then introduced and used to debride some of superior labral fraying as well as the undersurface of the rotator cuff tendon at the anterior supraspinatus. Next, arthroscopic instruments were then removed and a cannula was then redirected to the subacromial space. Arthroscope was then inserted and then a diagnostic arthroscopy was performed demonstrating an intact bursal side thickness of the rotator cuff tendon. However, lateral portals were subsequently established and began with spinal needle followed by 11 blade scalpel and then subacromial decompression was subsequently then performed with the arthroscopic shaver, which was used to debride the subacromial bursa as well as the undersurface of the acromion where a small anterior spur was subsequently debrided. The shaver was then used to probe the anterior aspect of the supraspinatus tendon which was noted to be significantly thinned and wispy. Therefore, [place] [address] OPERATIVE REPORT Name: EVELYN ORLANDO Room: [facility]#: [id number] Admission: 09/06/20 Attend Phys: Roney Penaloza DO Discharge: Date of : 59 Report #: [id number] subsequently completed with a shaver and the rotator cuff footprint was then subsequently prepared with arthroscopic shaver. Once this was prepared, it was elected to proceed with SpeedFix. Therefore, a FiberTape was then passed through the anterior and posterior aspects of the rotator cuff tendon tear and then brought into a lateral 4.75 mm SwiveLock anchor that was prepared with the appropriate punch, fully seated, rotator cuff tendons were then tensioned and then the anchor was then fully seated. Excess suture was cut and removed. Final images were then subsequently taken. Arthroscope was then reinserted into the glenohumeral joint and confirmed that the FiberTape had not been passed through the biceps tendon. Once this was confirmed, arthroscopic instruments were then removed. Excess fluid was removed. Wounds were then closed utilizing 3-0 nylon in a simple interrupted fashion followed by sterile dressings of Xeroform, 4 x 4s, ABD and, Medipore tape. Left upper extremity was placed into a slingshot brace. Sponge and needle counts correct x 2 and the patient was transferred back to the PACU in normal stable condition. Dr. Penaloza was present for all critical aspects of the case. <ELECTRONICALLY SIGNED> By: Roney Penaloza DO 09/08/20 1358 1106 1233Charanastasia Penaloza DO /nt
== END | disposition home or self-care (01) ==
LOC: M.SUR 08:09
PROVIDERS: ATTEND Orthopaedic Surgery
DX: M25.512 Pain in left shoulder (principal); M75.102 Unspecified rotator cuff tear or rupture of left shoulder, not specified as traumatic; I10 Essential (primary) hypertension; E78.5 Hyperlipidemia, unspecified; F32.9 Major depressive disorder, single episode, unspecified; F41.9 Anxiety disorder, unspecified; Z98.890 Other specified postprocedural states; Z79.899 Other long term (current) drug therapy; Z88.8 Allergy status to other drugs, medicaments and biological substances; Z91.040 Latex allergy status

== ENCOUNTER → 2020-09-22 | Outpatient (CLI) | payer OTHER | LOC: M.ULTRA 11:00 | PROVIDERS: ATTEND Physician Assistant | DX: M79.661 Pain in right lower leg (principal) ==

== ENCOUNTER → 2021-02-09 | Outpatient (CLI) | payer OTHER | LOC: M.MRI 12:58 | PROVIDERS: ATTEND Orthopaedic Surgery | DX: S83.232A Complex tear of medial meniscus, current injury, left knee, initial encounter (principal); M71.22 Synovial cyst of popliteal space [Baker], left knee; M25.462 Effusion, left knee; X58.XXXA Exposure to other specified factors, initial encounter; Y93.89 Activity, other specified; Y92.89 Other specified places as the place of occurrence of the external cause; Y99.8 Other external cause status ==

== ENCOUNTER 2021-04-24 13:52 | Inpatient (IN) | payer OTHER ==
[~2021-04-24] VITALS: Ht 157.5 cm; Wt 66.7 kg
[2021-04-24 14:23] VITALS: BP 124/89
[2021-04-24] MEDS ORDERED: LEXAPRO5 MG PO (14:28)
[2021-04-24 15:28] LABS: URINE BILIRUBIN NEGATIVE (Negative); URINE BLOOD TRACE (Negative); URINE CLARITY CLEAR; URINE COLOR YELLOW; URINE GLUCOSE-RANDOM NEGATIVE (Negative); URINE KETONES NEGATIVE (Negative); URINE LEUKOCYTES-REFLEX 1+ (Negative); URINE NITRITE-REFLEX NEGATIVE (Negative); URINE PROTEIN NEGATIVE (Negative); URINE SPECIFIC GRAVITY 1.025 (1.005-1.030); URINE UROBILINOGEN 0.2 E.U./dl (0.2-1.0)
[2021-04-24 15:39] LABS: ABSOLUTE BASOPHILS 0.1 thou/uL (0.0-0.2); ABSOLUTE EOSINOPHILS 0.2 thou/uL (0.0-0.7); ABSOLUTE LYMPHOCYTES 2.2 thou/uL (0.8-5.3); ABSOLUTE MONOCYTES 0.6 thou/uL (0.0-1.2); ABSOLUTE NEUTROPHILS 3.9 thou/uL (1.6-8.1); BASOPHILS 1.1 %; EOSINOPHILS 2.4 %; HEMATOCRIT 40.4 % (37.0-47.0); HEMOGLOBIN 13.4 gm/dL (12.0-15.0); LYMPHOCYTES 31.4 %; MCH 30.9 pg (26.0-34.0); MCHC 33.1 g/dL (28.0-37.0); MCV 93.2 fL (80.0-100.0); MONOCYTES 9.1 %; MPV 8.8 fl. (7.2-11.1); NUCLEATED RBCS 0 /100WBC; PLATELET COUNT* 312 thou/uL (150-400); RBC 4.34 mil/uL (4.20-5.00); RDW-CV 13.2 % (10.5-14.5)
[2021-04-24 15:44] LABS: SQUAMOUS >10 Many /LPF (0-3)
[2021-04-24 15:45] LABS: BACTERIA-REFLEX None Seen /HPF (None Seen); CASTS None Seen /LPF (None Seen); CRYSTALS None Seen /LPF (None Seen); URINE WBC-REFLEX 6-15 Few /HPF (0-5)
[2021-04-24 16:04] LABS: CALCIUM 9.2 mg/dL (8.5-10.1); CREATININE 0.7 mg/dL (0.6-1.3); POTASSIUM 3.3 mmol/L (3.5-5.1)
[2021-04-24 16:20] LABS: ALBUMIN 3.9 g/dL (3.4-5.0); TOTAL BILIRUBIN 0.3 mg/dL (<0.1-1.0); TOTAL PROTEIN 7.6 g/dL (6.4-8.2)
[2021-04-24 21:40] VITALS: BP 122/54
--- NOTE | 2021-04-24 22:41 | NUR ---
PATIENT REQUEST TO LEAVE. SENT YOUCALLMD MESSAGE TO DR GODOY, AWAITING HER PHONE CALL.
[2021-04-25] VITALS (7 sets, daily range): BP systolic 99–128; BP diastolic 49–86
--- NOTE | 2021-04-25 08:51 | EKG ---
[place] [address] ELECTROCARDIOGRAM REPORT Name: EVELYN ORLANDO Room: [place] [address] ADM IN [facility]#: [id number] Admission: 04/24/21 Attend Phys: Sharri Cook, Discharge: Date of : 59 Date of Service: 04/24/21 1527 Report #: [id number] THIS REPORT FOR: //name// [facility] ED Test Date: 2021-04-24 Test Time: 15:27:20 Pat Name: EVELYN JOHANNY Department: Room: [facility] Gender: F Quality Assurance Group Leader: KRYSTA : 1955 Requested By: Eden Ash Order Number: [id number] MD: Blake Abad Measurements Intervals [place] Rate: 81 P: 61 TN: 178 QRS: 24 QRSD: 99 T: 27 QT: 378 QTc: 439 Interpretive Statements Sinus rhythm Low voltage, precordial leads Compared to ECG 09/06/2020 08:38:46 No significant changes Electronically Signed On 04-25-2021 8:51:25 TERMINAL CARMAN by Blake Abad [email or web address] <ELECTRONICALLY SIGNED> By: Blake Abad MD, FACC 04/25/21 0851 1527 1527 Blake Abad MD, FAC /EPI
--- NOTE | 2021-04-25 16:26 | CON ---
[address] [address] CONSULTATION Name: EVELYN ORLANDO Room: [address] IN ..#: [id number] Admission: 04/24/21 Attend Phys: Sharri Cook MD Discharge: Date of : 59 Report #: [id number] THIS REPORT FOR: cc: Ricky Olivier MD, Bruce D. MD Vardakis, Gregory DO ~ cc: Ricky Olivier MD DATE OF CONSULTATION: 04/25/2021 Please note at the time of this dictation, the patient was seen and physically examined by myself. REASON FOR CONSULTATION: Abdominal pain, abnormal CT and some rectal bleeding. HISTORY OF PRESENT ILLNESS: This is a pleasant 66-year-old female who presented to the Emergency Room after developing severe abdominal pain on Saturday. She had been constipated, it was day 4 without any relief. She normally takes 2-3 stool softeners on a daily basis, but that has not been helping with her constipation. She states when she finally was able to go to the bathroom, it was like a hard plug and then she had diarrhea with some bright red rectal bleeding noted as well. She had called her PCP who told her that she needed to come to the emergency room. The patient states that when she has the severe abdominal pain, she has significant nausea with this discomfort prior to having diarrhea and she will have fever and chills. She states that this is her third episode in the last several months. The other two episodes, she had stayed home and was able to get through it. She states her normal bowel habits are about every 4 days, they are hard and dry and she has to really force in evacuation. The patient was last seen by us back in 2015 and when she underwent a colonoscopy in which was noted left-sided diverticulosis and 2 polyps removed in the rectal area that were hyperplastic. The patient states in 2019, she saw Dr. Phillip Erickson and underwent a colonoscopy with him as well. She states he removed some polyps, she does not know what kind, but she has never been diagnosed with ulcerative colitis before. In further talking to the patient and I mentioned colonic ischemia, she states that name sounded familiar and she thinks that is what Dr. Erickson had told her before. The patient also underwent an EGD back in 2011 by us that showed a small hiatal hernia. We will need to obtain her records from [facility], from Dr. Erickson. ALLERGIES: ACHROMYCIN, TRAMADOL, AVELOX, BACTRIM, PENICILLIN, MORPHINE, LATEX, HYDROMORPHONE, DOXYCYCLINE, CIPROFLOXACIN, CEPHALOSPORINS, CEFDINIR AND ADHESIVE TAPE. MEDICATIONS FROM HOME: Include Lexapro, vitamin E, Estrace, vitamin D, Zocor, biotin, multivitamin, probiotic, Colace, lisinopril [place] [address] CONSULTATION Name: EVELYN ORLANDO Room: [address] IN [facility]#: [id number] Admission: 04/24/21 Attend Phys: Sharri Cook MD Discharge: Date of : 59 Report #: [id number] PAST MEDICAL HISTORY: Hypertension, high cholesterol, history of pancreatitis and diverticulitis in the past. PAST SURGICAL HISTORY: Abdominal surgeries x 4, hysterectomy, oophorectomy, lysis of abdominal adhesions, sinus reconstruction, fistula repair, appendectomy, tonsil and adenoidectomy, right rotator cuff repair and left rotator cuff repair. FAMILY HISTORY: Negative for any GI or female cancers. SOCIAL HISTORY: Denies any alcohol, tobacco or illegal drug use. REVIEW OF SYSTEMS: Twelve-point review of systems is essentially negative except what is mentioned in the HPI. PHYSICAL EXAMINATION: VITAL SIGNS: Temperature 36.7, pulse 75, respirations 16, blood pressure 128/86. HEART: Regular rate and rhythm. LUNGS: Clear. ABDOMEN: Soft, positive bowel sounds in all 4 quadrants with some abdominal discomfort noted in the lower quads. LABORATORY DATA: LFTs normal. GFR 84. White count 7, hemoglobin 13.4, platelets 312. CT of the abdomen and pelvis showed wall thickening extending along the sigmoid and left lower colon with subtle inflammatory changes, no bowel obstruction is noted, diverticulosis noted. IMPRESSION: 1. Abdominal pain, improved. 2. Constipation recurrent about every 4 days, followed with diarrhea. 3. Abnormal CT, left sided. 4. Nausea, resolved since having diarrhea. 5. Hematochezia. 6. History of colon polyps, hyperplastic. PLAN: 1. Flexible sigmoidoscopy tomorrow with Dr. Hong. 2. Discussed need with the patient to have a better bowel regimen at home. Discussed a trial of MiraLax half scoop daily because 17 grams or a full scoop was too much in the past and we can adjust accordingly up or down depending on her response. 3. Flagyl IV since this is her third recurrence in the last several months, [address] [address] CONSULTATION Name: EVELYN ORLANDO Room: [facility] ADM IN [facility].#: [id number] Admission: 04/24/21 Attend Phys: Sharri Cook MD Discharge: Date of : 59 Report #: [id number] this time prompting her to come to the ER. 4. Obtain records from Dr. Erickson recent colonoscopy in 2019. 5. Further recommendations to be made once Dr. Hong sees the patient later today. Thank you for allowing us to participate in this patient's care. Please do not hesitate to call with any questions regard to this consult. <ELECTRONICALLY SIGNED> By: Tong Hong DO 04/25/21 1626 1008 1029Tong Hong DO /nt
[2021-04-26 04:23] LABS: HEMATOCRIT 34.5 % (37.0-47.0); MCV 93.7 fL (80.0-100.0); MPV 9.1 fl. (7.2-11.1); NUCLEATED RBCS 0 /100WBC; PLATELET COUNT* 284 thou/uL (150-400); RBC 3.69 mil/uL (4.20-5.00); RDW-CV 13.4 % (10.5-14.5); WBC 8.7 thou/uL (4.0-11.0)
[2021-04-26 04:36] LABS: ALBUMIN 3.4 g/dL (3.4-5.0); CALCIUM 8.4 mg/dL (8.5-10.1); CREATININE 0.7 mg/dL (0.6-1.3); POTASSIUM 3.8 mmol/L (3.5-5.1); TOTAL BILIRUBIN 0.3 mg/dL (<0.1-1.0); TOTAL PROTEIN 6.5 g/dL (6.4-8.2)
[2021-04-26 04:37] LABS: HEMOGLOBIN 11.4 gm/dL (12.0-15.0)
[2021-04-26 05:47] LABS: ABSOLUTE LYMPHOCYTES 1.3 thou/uL (0.8-5.3); ABSOLUTE NEUTROPHILS 7.4 thou/uL (1.6-8.1); PLATELET ESTIMATE ADEQUATE
[2021-04-26 06:10] LABS: ESR (SEDRATE) 5 mm/hr (0-30)
[2021-04-26 09:00] VITALS: BP 108/58
--- NOTE | 2021-04-26 15:37 | NUR ---
CM ASSESSMENT: PT A&O, INDEPENDENT WITH ADL'S, AND ACTIVE. PT RESIDES AT HOME WITH SPOUSE. PT USES 0, DME. PT HAS 0 HX OF HH OR SNF. NO CM D/C PLANNING NEEDS ANTICIPATED AT THIS TIME. CM WILL REMAIN AVAILABLE TO ASSIST AND FOLLOW NEEDED.
[2021-04-26 16:58] VITALS: BP 108/58
--- NOTE | 2021-04-28 18:07 | PATH ---
[address] [address] PATHOLOGY RPT PROCEDURE Name: GUERDA ORLANDO Room: [address] IN ..#: [id number] Admission: 04/24/21 Date of : 59 Discharge: 04/26/21 Report #: [id number] Path Case #: [id number] [facility] Accession Number: [id number] . 01 Material submitted: . sigmoid colon - BIOPSY SIGMOID COLON/ISCHEMIC COLITIS . 01 Clinical history: . SIGMOIDOSCOPY ULCERATIVE COLITIS . 02 Diagnosis: Large bowel "sigmoid colon", biopsy: - Large bowel mucosa without significant pathologic alteration. - Please see comment. LB 04/28/2021 1343 Local . 02 Comment: Biopsies of the sigmoid colon show large bowel mucosa without evidence of crypt dropout, active colitis, or features to suggest ischemic colitis. Clinical correlation is suggested. (MIGUEL/enoc; 04/28/2021) . 02 Electronically signed: . Alex Guadalupe MD, Pathologist NPI- [id number] . 01 Gross description: . The specimen is received in formalin, labeled "Guerda Orlando, sigmoid colon ischemic colitis". Received are 2 segments of pale corley tissue ranging in size from 0.3 to 0.4 cm in maximum dimensions. The specimen is submitted entirely in cassette A1.([facility]; 04/27/2021) [facility] 04/27/2021 1109 Local . 02 Pathologist provided ICD-10: K51.90 . 02 CPT . 532163 Specimen Comment: A courtesy copy of this report has been sent to [phone] Specimen Comment: [phone], Specimen Comment: Report sent to , DR GODOY / DR BUTTS Performed at: [address], [place] [id number] MD Ethan Tong MD Phone: [phone] Performed at: [address] [place] [address] PATHOLOGY RPT PROCEDURE Name: GUERDA ORLANDO Kervin Room: [address] IN M.R.#: [id number] Admission: 04/24/21 Date of : 59 Discharge: 04/26/21 Report #: [id number] Path Case #: [id number] [facility] [place] [id number], [place] [id number] MD Alfonso Palumbo MD Phone: [phone]
== END 2021-04-26 17:33 | disposition home or self-care (01) | DRG 393 ==
LOC: M.ERS 13:52 → M.2W 17:56 → M.TBA-ER 17:56 → M.2W 17:56
PROVIDERS: Internal Medicine Gastroenterology; Nurse Practitioner Family; ADMIT Internal Medicine; ATTEND Internal Medicine
PROC: 0DBN8ZX Excision of Sigmoid Colon, Via Natural or Artificial Opening Endoscopic, Diagnostic (ICD-10-PCS; principal; 2021-04-26)
DX: K55.039 Acute (reversible) ischemia of large intestine, extent unspecified (principal); K57.31 Diverticulosis of large intestine without perforation or abscess with bleeding; K58.1 Irritable bowel syndrome with constipation; K55.1 Chronic vascular disorders of intestine; E78.00 Pure hypercholesterolemia, unspecified; E87.6 Hypokalemia; I10 Essential (primary) hypertension; K64.4 Residual hemorrhoidal skin tags; Z20.822 Contact with and (suspected) exposure to COVID-19; Z90.49 Acquired absence of other specified parts of digestive tract; Z90.721 Acquired absence of ovaries, unilateral; Z88.6 Allergy status to analgesic agent; Z88.1 Allergy status to other antibiotic agents; Z88.0 Allergy status to penicillin; Z88.2 Allergy status to sulfonamides; Z88.8 Allergy status to other drugs, medicaments and biological substances; Z86.010 Personal history of colon polyps